=== PATIENT | male | born 1980 | race Caucasian/White ===

== ENCOUNTER 2016-09-02 10:48 | Emergency (ER) | payer OTHER ==
[2016-09-02] MEDS ORDERED: KETOROLAC 60 MG/2 ML VIAL IM STA (11:27)
[2016-09-02] MEDS ORDERED: DEXAMETHASONE 10 MG/ML VIAL PO STA (11:27)
[2016-09-02] MEDS ORDERED: CHERRY SYRUP 10 ML UDC PO ONE (11:44)
[2016-09-02] MEDS ORDERED: KETOROLAC 60 MG/2 ML VIAL ONE (11:44)
[2016-09-02] MEDS ORDERED: DEXAMETHASONE 10 MG/ML VIAL ONE (11:44)
--- NOTE | 2016-09-02 11:47 | ED Physician Documentation ---
PD HPI BACK PAIN - Stated complaint Stated Complaint: BACK PAIN - Chief complaint Chief Complaint: Back Pain - History obtained from History obtained from: Patient, Family - History of Present Illness Timing - onset: Yesterday Timing - duration: Days (q) Timing - details: Abrupt onset, Still present Location: Lower, Right Quality: Pain, Spasm, Sharp Associated symptoms: No: Fever, Weakness, Numbness, Incontinent of urine, Unable to urinate, Hematuria, Incontinent of stool Improves with: Rest, Ice, Position Worsened by: Movement, Lifting, Twisting Contributing factors: Lifting Similar symptoms before: Has not had sx before Recently seen: Not recently seen - Additional information Additional information: 36-year-old male was doing his usual workout yesterday he does some lifts once per week and he works out 3-4 times per week. Yesterday he was doing a lift with 225 pounds and he had a pop in his lower back on the second rib and has had persistent pain since. He did go home and ice the area he has been taking some ibuprofen this morning the ibuprofen was not helping with his pain. Review of Systems Constitutional: denies: Fever Eyes: denies: Decreased vision Ears: denies: Ear pain Nose: denies: Congestion Throat: denies: Sore throat Respiratory: denies: Cough GI: denies: Vomiting Skin: denies: Rash Musculoskeletal: reports: Back pain. denies: Neck pain, Extremity pain Neurologic: denies: Generalized weakness, Focal weakness, Numbness PD PAST MEDICAL HISTORY - Past Medical History Past Medical History: No - Past Surgical History Past Surgical History: Yes - Present Medications Home Medications: Ambulatory Orders Medication Instructions Recorded Confirmed Cyclobenzaprine [Flexeril] 10 mg PO TID PRN #20 tablet 09/02/16 HYDROcod/ACETAM 5/325 [[place] 5/325] 1 - 2 ea PO Q6H PRN #15 tablet 09/02/16 - Allergies Allergies/Adverse Reactions: Allergies Allergy/AdvReac Type Severity Reaction Status Date / Time No Known Drug Allergies Allergy Verified 09/02/16 10:54 - Social History Does the pt smoke?: Yes Smoking Status: Current every day smoker Does the pt drink ETOH?: Yes Does the pt have substance abuse?: No - Immunizations Immunizations are current?: Yes PD ED PE NORMAL - Vitals Vital signs reviewed: Yes (Normal) - General General: Well developed/nourished, Other (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.) - HEENT HEENT: Atraumatic, PERRL - Neck Neck: Supple, no meningeal sign - Respiratory Respiratory: No respiratory distress - Back Back: No CVA TTP, No spinal TTP, Other (There is tenderness to the paraspinous muscles at the L4-[address] across the back more to the right than left and it does not extend into the sciatic notch.) - Derm Derm: Normal color, Warm and dry, No rash - Extremities Extremities: No deformity, No edema - Neuro Neuro: No motor deficit, No sensory deficit - Psych Psych: Normal mood Results - Vitals Vitals: Vital Signs - 24 hr 09/02/16 10:51 Temperature 36.3 C L Heart Rate 70 Respiratory 16 Rate Blood Pressure 114/65 O2 Saturation 98 Oxygen O2 Source Room air PD MEDICAL DECISION MAKING - ED course Complexity details: considered differential, d/w patient, d/w family ED course: 36-year-old male with a lifting injury to his lower back does sound like he has a lot of muscle spasm and muscle tenderness. He is administered dexamethasone 10 mg orally and toradal 10mg IM. We will place him on some pain medication and muscle relaxant and I have expressed to the patient to avoid a heating pack and to use ice and stretch. Departure - Departure Disposition: 01 Home, Self Care Clinical Impression: Strain of lumbar paraspinal muscle Qualifiers: Encounter type: initial encounter Qualified Code(s): S39.012A - Strain of muscle, fascia and tendon of lower back, initial encounter Condition: Stable Instructions: ED Sprain Strain Lumbar Follow-Up: John Jacobs ARNP [Primary Care Provider] - Prescriptions: Cyclobenzaprine [Flexeril] 10 mg PO TID PRN #20 tablet PRN Reason: Spasms HYDROcod/ACETAM 5/325 [[place] 5/325] 1 - 2 ea PO Q6H PRN #15 tablet PRN Reason: Pain Forms: Activity restrictions
[2016-09-02 12:10] VITALS: BP 107/69
== END 2016-09-02 12:09 | disposition home or self-care (01) ==
LOC: ED 10:48
DX: S39.012A Strain of muscle, fascia and tendon of lower back, initial encounter (principal); X50.9XXA Other and unspecified overexertion or strenuous movements or postures, initial encounter; Y93.B3 Activity, free weights
CPT/HCPCS: 96372; 99283; A9270